=== PATIENT | female | born 1995 | race Caucasian/White ===

== ENCOUNTER 2024-12-12 15:09 | Outpatient (CLI) | payer BC, SELFPAY ==
--- OUTSIDE RECORDS SUMMARY | 2024-12-12 15:16 | XMS_ITS | Clinical Summary ---
Author Organization [facility] Address [address] [place] [address] Phone Care Team Providers Care Cadd Instructor Name Role Phone MadanAmberly Primary Care Provider [phone] Allergies Active Allergy Reactions Criticality Noted Date Comments Iodinated Contrast Media Angioedema High 03/20/2019 Watermelon Unknown 12/30/2020 Medications vits15/iron/fol ic/dss ( VIT 34-[id number] SS ORAL)Indication s:Amenorrhea Take by mouth. Ac tive OTHER Liquid iron 1 tablespoon once daily Active Active Problems Problem Noted Date Diagnosed Date Routine follow-up 06/02/2024 MBC: IOL 05/19/2024 Threatened miscarriage 10/13/2023 Anxiety state 05/19/2019 Assessment & Plan (05/19/2019 9:51 PM LEATHER STRIPPING MACHINE OPERATOR): Uncontrolled, Worsening and Symptomatic. Discussed starting a medication at length with patient, she very strongly wants a trial of Pristiq, reports a friend of hers takes that medication and has had good results. Discussed possible SE with pt, pt given updated list of counselors, Psychologists and Psychiatrists accepting new patients. Rx Pristiq sent, f/u in 4 weeks, sooner if needed. Pt voiced understanding of all instructions. Hx of bulimia nervosa 03/30/2019 Resolved Problems Problem Noted Date Diagnosed Date Resolved Date Family history of breast cancer-MGM 09/20/2017 03/30/2019 Palpitations 11/13/2015 03/30/2019 Dizziness 11/13/2015 03/30/2019 Chest pain, midsternal 11/13/201503/30 Encounters Date Type Department Care Team Description 11/29/2024 External Device Data STL ABSTRACTION Provider, Abstract 11/29/2024 External Device Data STL ABSTRACTION Provider, Abstract 11/28/2024 External Device Data STL ABSTRACTION Provider, Abstract 11/01/2024 External Device Data STL ABSTRACTION Provider, Abstract 10/17/2024 External Device Data STL ABSTRACTION Provider, Abstract 10/05/2024 External Device Data STL ABSTRACTION Provider, Abstract 09/19/2024 External Device Data STL ABSTRACTION Provider, Abstract 09/12/2024 External Device Data STL ABSTRACTION Provider, Abstract 09/12/2024 External Device Data STL ABSTRACTION Provider, Abstract from Last 3 Months Immunizations Immunization Administration Dates Next Due (ADACEL/BOOSTRIX)(10 YR UP) TDAP VACCINE, 0.5ML, IM 12/04/2008 (M-M-R II/PRIORIX)(12 MO UP) MEASLES, MUMPS AND RUBELLA VIRUS VACCINE, 0.5 ML IM/SUBCUT 06/01/2024 INFLUENZA VACCINE QUADRIVALE NT 3 YR UP PF IM 02/07/2016 INFLUENZA VACCINE QUADRIVALE NT 6 MOS UP CELL DERIVED PF IM 03/08/2020 Influenza Seasonal Unspecifi ed Formulation IM 03/13/2024,03/15/2023,03/15/2023,03/16,03/13/2021,01/30/2019,01/25/2019 ,02/22/2018,03/26/2017 Influenza Vaccine Split 3+ Yrs PF IM 03/15/2015 Meningococcal ACWY Vaccine, Unspecified Formulation 12/04/2008 Skin Test TB 01/13/2015 Family History Medical History Relation Name Comments No Known Problems Father Diabetes Maternal Grandfather Heart Disease Maternal Grandfather High Cholesterol Maternal Grandfather Hypertension Maternal Grandfather Breast Cancer Maternal Grandmother Late 4 0s Cancer Maternal Grandmother No Known Problems Mother Leukemia Paternal Grandfather early 6 0s Cancer Paternal Grandmother Leukemia Paternal Grandmother early 6 0s Healthy Sister 1 Healthy Sister 2 Healthy Sister 3 Colon Cancer Neg Hx Ovarian Cancer Neg Hx Relation Name Status Comments Father Alive Maternal Grandfather Alive Maternal Grandmother Mother Alive Paternal Grandfather Paternal Grandmother Sister 1 Alive Sister 2 Alive Sister 3 Alive Social History Tobacco Use Types Packs/Day Years Used Date Smoking Tobacco: Former Cigars Smokeless Tobacco: Never Tobacco Cessation:Counseling Given: Not Answered Comments:formerly smoked hookah Alcohol Use Standard Drinks/Week Comments Not Currently 0 (1 standard drink = 0.6 oz pur e alcohol) Comments No Sex and Gender Information Value Date Recorded Sex Assigned at Not on file Legal Sex Female 9:22 PM CDT Gender Identity Not on file Sexual Orientation Not on file Occupation Industry Job Start Date Job End Date nurse Not on file Not on file Not on file Last Filed Vital Signs Vital Sign Reading Time Taken Comments Blood Pressure 116/75 07/11/2024 1:04 PM LEATHER STRIPPING MACHINE OPERATOR Pulse 68 07/11/2024 1:04 PM LEATHER STRIPPING MACHINE OPERATOR Temperature 36.6 C (97.9 F) 06/02/2024 7:23 AM LEATHER STRIPPING MACHINE OPERATOR Respiratory Rate 18 06/02/2024 7:23 AM LEATHER STRIPPING MACHINE OPERATOR Oxygen Saturation 99% 05/31/2024 8:53 PM LEATHER STRIPPING MACHINE OPERATOR Inhaled Oxygen Concentration - - Weight 69.9 kg (154 lb) 07/11/2024 1:04 PM LEATHER STRIPPING MACHINE OPERATOR Height 162.6 cm (5' 4) 07/11/2024 1:04 PM LEATHER STRIPPING MACHINE OPERATOR Body Mass Index 26.43 07/11/2024 1:04 PM LEATHER STRIPPING MACHINE OPERATOR Plan of Treatment Health Maintenance Due Date Last Done Comments HPV VACCINES (1 - 3-dose series) 02/25/2008 HEPATITIS B VACCINES (1 of 3 - 19+ 3-dose series) 02/25/2012 DTAP/TDAP/TD VACCINES (2 - T d or Tdap) 12/04/2018 12/04/2008 HPV/Cotest (21-29) 09/20/2022 09/20/2017 HPV/Cotest (30-65) 2023 09/20/2017 CERVICAL CANCER SCREENING 06/19/2023 PAP SMEAR 06/19/2023 06/19/2020, 10/15, 10/25/2018, Additional history exists INFLUENZA VACCINE (#1) 2024 , 03/15/2023, 03/15/2023, Additional history exists Procedures Procedure Name Priority Date/Time Associated Diagnosis Comments CERV/VAG CYTO AGE BASED SCREEN PAP Routine 06/19/2020 11:54 AM LEATHER STRIPPING MACHINE OPERATOR Well woman exam with routine gynecological exam Screening for HPV (human papillomavirus) Encounter for Papanicolaou smear for cervical cancer screening CERV/VAG CYTO SCREEN PAP RLFX HPV Routine 09/20/2017 1:53 PM CDT Well woman exam with routine gynecological exam Pap smear for cervical cancer screening from Last 3 Months or Most Recently Relevant to Health Maintenance Results * CERV/VAG CYTO AGE BASED SCREEN PAP (06/19/2020 11:54 AM LEATHER STRIPPING MACHINE OPERATOR) COMMENT (PAP): SEE COMMENT 4:37 PM LEATHER STRIPPING MACHINE OPERATOR [facility] Comment: This order for age-based cervical cancer and STI screening follows ACOG guidelines(PB 168, 140, GDQ027). See individual assays for performing site location. CLINICAL INFORMATION HEALTHY 06/24/2020 4:37 PM LEATHER STRIPPING MACHINE OPERATOR [facility] LAST MENSTRUAL PERIOD INFORMATION NOT PROVIDED 06/24/2020 4:37 PM LEATHER STRIPPING MACHINE OPERATOR [facility] PREV PAP: [id number] NIL 06/24/2020 4:37 PM LEATHER STRIPPING MACHINE OPERATOR [facility] PREV BX: INFORMATION NOT PROVIDED 06/24/2020 4:37 PM LEATHER STRIPPING MACHINE OPERATOR [facility] SOURCE Endocervix 06/24/2020 4:37 PM LEATHER STRIPPING MACHINE OPERATOR [facility] ADEQUACY: SEE COMMENT 06/24/2020 4:37 PM LEATHER STRIPPING MACHINE OPERATOR [facility] Comment: Satisfactory for evaluation. Endocervical/transformation zone component present. Age and/or menstrual status not provided PAP INTERP Negative for intraepithelial lesion or malignancy. 06/24/2020 4:37 PM LEATHER STRIPPING MACHINE OPERATOR [facility] COMMENT This Pap test has been evaluated with computer assisted technology. 06/24/2020 4:37 PM LEATHER STRIPPING MACHINE OPERATOR [facility] DIPPER OPERATOR: SEE COMMENT 2020 4:37 PM LEATHER STRIPPING MACHINE OPERATOR [facility] Comment: BEF, CT(ASCP) CT screening location: [place] [address] [place] [address] EXPLANATORY NOTE SEE COMMENT 4:37 PM LEATHER STRIPPING MACHINE OPERATOR [facility] Comment: EXPLANATORY NOTE: The Pap is a screening test for cervical cancer. It is not a diagnostic test and is subject to false negative and false positive results. It is most reliable when a satisfactory sample, regularly obtained, is submitted with relevant clinical findings and history, and when the Pap result is evaluated along with historic and current clinical information. Genital SWAB OF ENDOCERVIX / Unknown Collection / Unknown 06/19/2020 11:54 AM LEATHER STRIPPING MACHINE OPERATOR 06/19/2020 6:59 PM LEATHER STRIPPING MACHINE OPERATOR Narrative [facility] - 06/24/2020 4:37 PM LEATHER STRIPPING MACHINE OPERATOR Performing Organization Information: Site ID: Name: [facility] Address: [address] [address] Director: Vicenta Quiñonez us Sandrine Hernandez OPEN HEARTH MELTER PATHOLOGY/CYTOLOGY ORDERABL ES Final Result [facility] [phone] * CERV/VAG CYTOPATH, THIN PREP IMAGR RFLX HPV (09/20/2017 1:53 PM CDT) CLINICAL INFORMATION SEE COMMENT 09/27/2017 7:27 AM CDT [facility] Comment:Information not prov ided LAST MENSTRUAL PERIOD SEE COMMENT 09/27/2017 7:27 AM CDT [facility] Comment:INFORMATION NOT PROV IDED PREV PAP: SEE COMMENT 09/27/2017 7:27 AM CDT [facility] Comment:INFORMATION NOT PROV IDED PREV BX: SEE COMMENT 09/27/2017 7:27 AM CDT [facility] Comment:INFORMATION NOT PROV IDED SOURCE Endocervix 09/27/2017 7:27 AM CDT [facility] ADEQUACY: SEE COMMENT 09/27/2017 7:27 AM CDT [facility] Comment: Satisfactory for evaluation. Endocervical/transformation zone component absent. Age and/or menstrual status not provided PAP INTERP SEE COMMENT 09/27/2017 7:27 AM CDT [facility] Comment:Negative for intraep ithelial lesion or malignancy. CYTOLOGY INFECTION SEE COMMENT 09/27 7:27 AM CDT [facility] Comment: Fungal organisms morphologically consistent with Delia spp. COMMENT SEE COMMENT 09/27/2017 7:27 AM CDT [facility] Comment: This Pap test has been evaluated with computer assisted technology. DIPPER OPERATOR: SEE COMMENT 2017 7:27 AM CDT [facility] Comment: MMW, CT(ASCP) CT screening location: [facility] [place] [address] [address] [place] [address] EXPLANATORY NOTE SEE COMMENT 018 7:27 AM CDT [facility] Comment: EXPLANATORY NOTE: The Pap is a screening test for cervical cancer. It is not a diagnostic test and is subject to false negative and false positive results. It is most reliable when a satisfactory sample, regularly obtained, is submitted with relevant clinical findings and history, and when the Pap result is evaluated along with historic and current clinical information. Genital SWAB OF ENDOCERVIX / Unknown Collection / Unknown 09/20/2017 1:53 PM CDT 09/20/2017 4:03 PM CDT Narrative [facility] - 09/27/2017 7:27 AM CDT Performing Organization Information: Site ID: [place] Name: [facility] Address: [facility] [address] [place] [address] Director: Vicenta Quiñonez Sandrine Hernandez NP PATHOLOGY/CYTOLOGY ORDERABL ES Final Result [facility] from Last 3 Months or Most Recently Relevant to Health Maintenance [place] [address] RX [facility] [employer] ACCESS CHOICE [facility] BLUE ACCESS CHOICE Shopper Advance Directives For more information, please contact: [phone] * Full Code (Latest Code Status on File) Date Activated Date Inactivated Comments 05/31/2024 4:32 AM 06/02/2024 2:24 PM * Full Code Date Activated Date Inactivated Comments 05/29/2024 3:57 PM 05/31/2024 4:32 AM * Full Code Date Activated Date Inactivated Comments 10/13/2023 4:00 PM 10/13/2023 8:04 PM Care Teams Cadd Instructor Relationship Specialty Start Date End Date Amberly Hager DO [address] [address] PCP - General Internal Medicine 12/17/20
--- OUTSIDE RECORDS SUMMARY | 2024-12-12 15:16 | XMS_ITS | Encounter Summary ---
Author Organization [facility] Address [address] [place] [address] Care Team Providers Care Operations Examiner Name Role Phone MosesAmberly seals Primary Care Provider [phone] Encounter Details Date Type Department Care Team (Late st Contact Info) Description 10/07/2023 Lab Requisition [facility] [address] [place] [address] Paty Olivo DO [address] [place] [address] [place] [address] Social History Tobacco Use Types Packs/Day Years Used Date Smoking Tobacco: Some Days Cigars Smokeless Tobacco: Never Comments:formerly smoked seun kah Alcohol Use Standard Drinks/Week Comments Not Currently [...] file Not on file Not on file documented as of this encounter Plan of Treatment Not on file documented as of this encounter Procedures Procedure Name Priority Date/Time Associated Diagnosis Comments PROGESTERONE Stat 10/07/2023 1:36 PM CDT HCG QUANTITATIVE, BLOOD Stat 10/07/2023 1:36 PM CDT documented in this encounter Results * PROGESTERONE (10/07/2023 1:36 PM CDT) PROGESTERONE 7.46 ng/mL 10/07/2023 2:41 PM CDT [facility] Comment: Progesterone Reference Ranges: Female Follicular phase 0.067 - 0.193 ng/mL Ovulation phase 0.568 - 4.14 ng/mL Luteal phase 9.04 - 14.5 ng/mL Postmenopause <0.50 - 0.126 ng/mL 1st trimester 24.0 - 44.3 ng/mL 2nd trimester 47.5 - 83.4 ng/mL 3rd trimester 107 - 214 ng/mL Male <0.05 - 0.149 ng/mL Blood 10/07/2023 1:36 PM CDT 10/07/2023 1:55 PM CDT us Paty Olivo DO CHEMISTRY ORDERABLES Final Resu lt [facility]# [id number] [address] [facility] [place] [address] * (ABNORMAL) HCG QUANTITATIVE, BLOOD (10/07/2023 1:36 PM CDT) HCG QUANT, BLOOD 4,022.0(H ) <5.0 mIU/mL 10/07/2023 2:38 PM CDT [facility] Comment: HCG Quantitative Reference Range Male <= 2 mIU/mL Female Non premenopausal <= 1 mIU/mL Non postmenopausal <= 7 mIU/mL Gestational Age HCG Concentration 3 Weeks 5.8 - 71.2 mIU/mL 4 Weeks 9.5 - 750 mIU/mL 5 Weeks 217 - 7138 mIU/mL 6 Weeks 158 - 31,795 mIU/mL 7 Weeks 3697 - 163,563 mIU/mL 8 Weeks 32,065 - 149,571 mIU/mL 9 Weeks 63,803 - 151,410 mIU/mL 10 Weeks 46,509 - 186,977 mIU/mL 12 Weeks 27,832 - 210,612 mIU/mL 14 Weeks 13,950 - 62,530 mIU/mL 15 Weeks 12,039 - 70,971 mIU/mL 16 Weeks 9040 - 56,451 mIU/mL 17 Weeks 8175 - 55,868 mIU/mL 18 Weeks 8099 - 58,176 mIU/mL Blood 10/07/2023 1:36 PM CDT 10/07/2023 1:55 PM CDT Paty Olivo DO CHEMISTRY ORDERABLES Final Resu lt Performing Organization Address City/State/[facility] Co de Phone Number [facility]# [id number] [address] [facility] [place] [address] documented in this encounter Visit Diagnoses Not on filedocumented in this encounter Care Teams Operations Examiner Relationship Specialty Start Date End Date Amberly Hager DO [address] [place] [address] [place] [address] PCP - General Internal Medicine 12/17/20 documented as of this encounter
[2024-12-12 16:06] LABS: Beta HCG Quantitative < 2.39 mIU/ML
== END 2024-12-12 15:10 | disposition home or self-care (01) ==
PROVIDERS: Visit Provider Obstetrics & Gynecology
DX: N92.6 Irregular menstruation, unspecified (principal)
CPT/HCPCS: 36415; 84702